=== PATIENT | female | born 1985 | race Caucasian/White ===

== ENCOUNTER 2022-01-17 05:05 | Emergency (ER) | payer MEDICAID ==
[~2022-01-17] VITALS: Ht 152.4 cm; Wt 55.0 kg
[2022-01-17 05:28] VITALS: BP 119/82
[2022-01-17] MEDS ORDERED: ALBU18HF2 IH (06:13)
== END 2022-01-17 06:20 | disposition home or self-care (01) ==
LOC: ER 05:05
DX: J45.909 Unspecified asthma, uncomplicated (principal); Z76.0 Encounter for issue of repeat prescription
CPT/HCPCS: 99283